=== PATIENT | male | born 1955 | race Caucasian/White ===

== ENCOUNTER 2018-02-09 11:40 | Inpatient (IN) | payer BC, OTHER ==
[~2018-02-09] VITALS: Ht 175.3 cm; Wt 74.8 kg
--- NOTE | 2018-02-09 17:00 | NUR ---
Pre-Assessment Patient is met in intake office, he is alert and oriented x4, he states he is here for a supervised withdrawal from Alcohol. Vital Signs: BP 120/80, HR 83, RR 16, O2 95 % He is clean shaven and well dressed and speaks in a clear voice. Interview will continue when Patient arrives on the floor. Explained policy of any controlled substance that may be brought in would be destroyed, patient agreed to all policies and procedures.
[2018-02-09] MEDS ORDERED: MELO-105 PO (17:32)
[2018-02-09] MEDS ORDERED: CARV6.25 PO (17:32)
[2018-02-09] MEDS ORDERED: MONT10TA25 PO (17:32)
[2018-02-09] MEDS ORDERED: ASPI81TA31 PO (17:32)
[2018-02-09] MEDS ORDERED: LISI1TAB11 PO (17:32)
[2018-02-09] MEDS ORDERED: TRAZ-182 PO (17:32)
[2018-02-09] MEDS ORDERED: ESCI10TA PO (17:32)
[2018-02-09] MEDS ORDERED: PANT40TA4 PO (17:32)
[2018-02-09] MEDS ORDERED: MIRALAX 17 GM POWD.PACK PO PRN (17:45)
[2018-02-09] MEDS ORDERED: LORAZEPAM 2 MG/1 ML VIAL IM PRN (17:45)
[2018-02-09] MEDS ORDERED: ACETAMINOPHEN 325 MG TABLET PO PRN (17:45)
[2018-02-09] MEDS ORDERED: CLONIDINE HCL 0.1 MG TABLET PO PRN (17:45)
[2018-02-09] MEDS ORDERED: MAG HYDROX/AL HYDROX/SIMETH 30 ML LIQUID UDC PO PRN (17:45)
[2018-02-09] MEDS ORDERED: MAGNESIUM HYDROXIDE 30 ML LIQUID UDC PO PRN (17:45)
[2018-02-09] MEDS ORDERED: LOPERAMIDE HCL 2 MG CAPSULE PO PRN ×2 (17:45)
[2018-02-09] MEDS ORDERED: IBUPROFEN 600 MG TABLET PO PRN (17:45)
[2018-02-09] MEDS ORDERED: THIAMINE HCL 200 MG/2 ML VIAL IM ONE (17:45)
[2018-02-09] MEDS ORDERED: ONDANSETRON ODT 4 MG TAB.RAPDIS SL PRN (17:45)
[2018-02-09] MEDS ORDERED: ONDANSETRON 4 MG/2 ML VIAL IM PRN (17:45)
[2018-02-09] MEDS ORDERED: LORAZEPAM 1 MG TABLET PO PRN ×2 (17:45→18:00)
--- NOTE | 2018-02-09 18:00 | NUR ---
Admission Note: Patient is a 62 yr old male who was admitted to [facility] 02/09/18 for a medically supervised withdrawal from ETOH ( Vodka/Beer ) He arrived in [place] this afternoon from [place]. Patient states that his last drink was last Monday02/03/18 .1 pint of Vodka. He states that he is a binge drinker and can go for days / weeks without drinking and then he will go on a binge, he states this has been going on since he relapsed 5 weeks ago after 1 year of sobriety. It has been 1 week since he had any alcohol so he is not experiencing any withdrawal symptoms but states when he does they include diaphoresis, anxiety and hand tremors. He has a past medical history of heart murmur in which on 06/11/13 he had open heart surgery and had an aortic valve replacement. He has a history of Hypertension in which he takes Lisinopril /HCTZ 20/12.5 daily and Coreg 6.25MG BID. He also takes Aspirin 81MG PO daily. He has GERD and takes Pantoprazole 40 MG PO daily He has depression and takes Lexapro 10 MG PO daily Seasonal Allergies he takes Singulair 10 MG PO HS Insomnia he takes Trazodone 50 MG PO and Restoril 15 MG PO HS Patient states that he first started drinking at age 14 but that it didn't become a problem until the last few years after going through a separation with his , he says that it was becoming a problem lately because he would call in sick from work and stay home and drink and he was getting worried he may lose his job as he had run out of sick time, " I have such a good job and I really don't want to lose it", 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 He states he went to Treatment in 2017 to [facility] in [facility] for 30 days and stayed sober for 1 year until this relapse 5 weeks ago. He states the reason for relapse was that he started off thinking he could control his drinking and just have 1 or 2 drinks but that it soon led to binge drinking many drinks, he states that this time will be different because he has a good sober support system and his girlfriend is 100% beside him and promises to stop drinking also to support him. Substance History: 12 beers OR 1 Pint Vodka Non Daily for 5 weeks last consumed 1 Pint Vodka 02/03/18 He states that over the last 10 yrs or so he has tried many times on his own to stop drinking and had been successful at times but with the stress of an unhappy marriage he would always go back to drinking. He also states that after getting a DUI 2 years ago he realized his problem was bigger than he thought. " I need to learn the proper tools to stay sober and maintain a life of sobriety as I'm not getting any younger ". He states no accidental overdose, no suicide intent , no psych history , no delirium or blackouts. He has a PCP in [place] named Dr Aaron Rod Lung sounds clear bilaterally , no cough or SOB, BS present in all quadrants, last BM 02/09/18. Encouraged patient to attend groups and meetings and learn new coping skills to maintain solid sobriety and to be open and honest for best possible results. Admitting COLUMBA 4 Weight is 165 lbs on standing scale, Ht is 5'9", he is full code, regular diet, No Known allergies, skin is intact. Addendum: 02/12/18 at 0801 by LOREN DESAI RN Substance Use History: Temazepam 15 MG PO every night for 2 Years.
--- NOTE | 2018-02-09 19:30 | NUR ---
Start of Shift Patient Received. patient is noted in the activities room participating in a group meeting. Patient is currently receiving PRN medications for any increased signs and symptoms of withdrawal. No PRN Medications administered. Admission CIWA noted to be 4. All needs attended to promptly. Will continue plan of care as ordered.
--- NOTE | 2018-02-09 19:45 | NUR ---
End Of Shift: Patient was admitted today 02/09/18 for a medically supervised withdrawal from Alcohol, he has settled into the unit and is in room 306. MD on the floor to see Patient, UDS obtained and awaiting Lab blood draw. Endorsed to PM nurse.
[2018-02-09 20:14] LABS: BASOPHILS # (AUTO) 0.1 K/uL (0.0-8.0); BASOPHILS % (AUTO) 1.9 % (0.0-2.0); EOSINOPHILS # (AUTO) 0.2 K/uL (0.0-0.7); EOSINOPHILS % (AUTO) 4.2 % (0.0-7.0); HEMATOCRIT 34.8 % (36.7-47.1); LYMPHOCYTES # (AUTO) 1.6 K/uL (20.0-40.0); LYMPHOCYTES % (AUTO) 31.5 % (20.5-51.5); MEAN CORPUSCULAR HEMOGLOBIN 31.8 uug (23.8-33.4); MEAN CORPUSCULAR HGB CONC 34 g/dL (32.5-36.3); MEAN CORPUSCULAR VOLUME 92.5 fL (73.0-96.2); MONOCYTES # (AUTO) 0.5 K/uL (2.0-10.0); MONOCYTES % (AUTO) 10.6 % (0.0-11.0); NEUTROPHILS # (AUTO) 2.6 K/uL (1.8-8.9); NEUTROPHILS % (AUTO) 51.8 % (38.5-71.5); PLATELET COUNT (AUTO) 296 K/uL (152-348); RED BLOOD CELL COUNT(AUTO) 3.76 MIL/uL (4.06-5.63); WHITE BLOOD COUNT (AUTO) 5.1 K/uL (3.6-10.2)
[2018-02-09 20:26] LABS: ETHANOL < 3 MG/DL (0-0)
[2018-02-09 20:27] LABS: ALANINE AMINOTRANSFERASE 38 U/L (16-63); ALKALINE PHOSPHATASE 89 U/L (50-136); AMYLASE 98 U/L (25-115); ASPARTATE AMINOTRANSFERASE 32 U/L (15-37); BILIRUBIN,TOTAL 0.2 mg/dL (0.2-1.0); CARBON DIOXIDE 33 mmol/L (21-32); CHLORIDE 99 mmol/L (98-107); CREATININE 0.9 mg/dL (0.6-1.3); GLUCOSE 130 mg/dL (74-106); LIPASE 367 U/L (73-393); MAGNESIUM 1.9 mg/dL (1.8-2.4); POTASSIUM 3.2 mmol/L (3.5-5.1); TOTAL PROTEIN, SERUM 6.5 g/dL (6.4-8.2); UREA NITROGEN, BLOOD 13 mg/dL (7-18)
[2018-02-09 20:48] VITALS: BP 115/87
[2018-02-09] MEDS: CARVEDILOL 6.25 MG TABLET PO SCH (20:50)
[2018-02-09] MEDS: diphenhydrAMINE 50 MG CAPSULE PO PRN (20:50)
[2018-02-09] MEDS: TRAZODONE 50 MG TABLET PO SCH (20:50)
[2018-02-09 20:56] LABS: *AMPHETAMINE, URINE NEGATIVE (NEGATIVE); *BARBITURATE, URINE NEGATIVE (NEGATIVE); *CANNABINOID, URINE NEGATIVE (NEGATIVE); *COCCAINE, URINE NEGATIVE (NEGATIVE); *OPIATE, URINE NEGATIVE (NEGATIVE); *PHENCYCLIDINE SCREEN,URINE NEGATIVE (NEGATIVE)
[2018-02-09] MEDS ORDERED: POTASSIUM CHLORIDE 20 MEQ TAB.PRT.SR PO ONE (21:00)
--- NOTE | 2018-02-09 21:00 | NUR ---
PRN Medication administration/MD Communication Patient is noted verbalizing inability of falling asleep. PRN Trazodone and Benadryl administered. Labs resulted with K noted to be 3.2. Relayed to MD with new order for KDUR 40meq x1. Order noted and carried out. Medication administered accordingly. All needs attended to promptly. Will continue to monitor.
--- NOTE | 2018-02-09 22:00 | NUR ---
PRN Medication Reassessment 2200 Patient is noted in bed with his eyes closed. Breathing even and non labored. No signs of restlessness or discomfort noted. PRN Benadryl and Trazodone noted to be effective. Will continue to monitor.
[2018-02-10 00:05] VITALS: BP 122/83
[2018-02-10 04:24] VITALS: BP 124/80
[2018-02-10] MEDS: PANTOPRAZOLE SODIUM 40 MG TABLET.DR PO SCH (06:35)
--- NOTE | 2018-02-10 07:09 | NUR ---
End of Shift Patient is in bed with eyes closed. Breathing even and non labored. Patient continues on PRN medications for increased signs and symptoms of withdrawal. He received PRN Benadryl and Trazodone with medication noted to be effective. Labs noted and supplemented with KDUR 40meq. Last noted CIWA 1. He was noted to sleep a total of 8 hours. All needs attended to promptly. Will endorse to continue plan of care as ordered.
--- NOTE | 2018-02-10 07:47 | NUR ---
Start of shift Pt is y/o male admitted for medically supervised withdrawal of ETOH. Per senior system operator nurse COLUMBA was 1 at 2400. Upon start of shift pt was in bed with eyes closed. Araousable to voice and light touch. Pt appears disheveled. Pts room has wrappers and empty bottles all over tables and dresser. Pts expression is anxious and he has poor eye contact. During assessment, pt is AOx3. Lung sounds clear bilaterally. Radial pulse is regular and non-bounding. Abdomen soft and non-tender. Pt denies c/o N/V/D. Skin is warm and dry. Pt denies pain at this time. Pt is currently on PRN medications to manage withdrawal symptoms. Bed in lowest position. Side rails up x2. Call light functioning and within reach. All needs attended and met. Will continue to monitor.
[2018-02-10 08:00] VITALS: BP 120/82
--- NOTE | 2018-02-10 08:08 | NUR ---
CIWA 1- Pt denies c/o withdrawal symptoms. Pt c/o mild anxiousness. VSS. Pt calm, cooperative and optimistic about maintaining sobriety.
[2018-02-10] MEDS ORDERED: TUBERCULIN,PURIF.PROT.DERIV. 5 TU/0.1 ML TEST ID ONE (09:00)
[2018-02-10] MEDS ORDERED: Medication Not On Formulary EA (Lisinopril/HCTZ (Lisinopril-Hctz 20-12.5 Mg Tab) 1 TAB) PO SCH (09:00)
[2018-02-10] MEDS: THIAMINE HCL 100 MG TABLET PO SCH (09:04)
[2018-02-10] MEDS: HYDROCHLOROTHIAZIDE 12.5 MG CAPSULE PO SCH (09:04)
[2018-02-10] MEDS: LISINOPRIL 20 MG TABLET PO SCH (09:04)
[2018-02-10] MEDS: ASPIRIN 81 MG TAB.CHEW PO SCH (09:05)
[2018-02-10] MEDS: MONTELUKAST SODIUM 10 MG TABLET PO SCH (09:05)
[2018-02-10] MEDS: MULTIVITAMINS,THERAPEUTIC TABLET PO SCH (09:05)
[2018-02-10] MEDS: CARVEDILOL 6.25 MG TABLET PO SCH ×2 (09:05→17:16)
[2018-02-10] MEDS: FOLIC ACID 1 MG TABLET PO SCH (09:06)
[2018-02-10 12:00] VITALS: BP 116/72
--- NOTE | 2018-02-10 12:08 | NUR ---
CIWA 1- VSS, PT C/O MILD ANXIETY. PT DENIES C/O WITHDRAW SYMPTOMS AT THIS TIME. PT PARTICIPATED IN GROUP THERAPY AND ID + COPING SKILLS TO MAINTAIN SOBRIETY.
[2018-02-10 16:00] VITALS: BP 106/76
--- NOTE | 2018-02-10 16:16 | NUR ---
CIWA 1- VSS, PT C/O MILD ANXIETY. PT DENIES C/O WITHDRAW SYMPTOMS AT THIS TIME. PT PARTICIPATED IN BOTH GROUP THERAPY SESSIONS TODAY AND VERBALIZES HE HAS ID + COPING SKILLS TO MAINTAIN SOBRIETY.
--- NOTE | 2018-02-10 18:28 | NUR ---
306 End of shift Pt is 62 y/o male admitted for medically supervised withdrawal of ETOH. Last CIWA 1 at 1600. Pt A&O x4. Pts C/O anxiety, but managed with + coping skills. Pt is currently on PRN medications to manage withdrawal symptoms; no PRNs given today. No notable withdrawal symptoms. Pt appetite is good. Pt encouraged to participate in group activities, socialize with others and identify positive coping skills to maintain sobriety. Pt did attend both group sessions today. PO fluids 2377 ml, voids x3, BM x2. FULL CODE AND NKA. Bed in lowest position. Side rails up x2. Call light functioning and within reach. All needs attended and met. Will continue to monitor. Endorsed to PM shift.
--- NOTE | 2018-02-10 19:30 | NUR ---
Start of Shift Endorsement received from day nurse. Pt admitted 02/09/18 for medically managed withdrawal/detox from ETOH. Pt is listed as a full code with NKA's, on a cardiac diet. Pt to be d/c'd Monday am. Pt found in room, appears depressed with poor eye contact, loud voice, slumped poisture. Pt with racing/loose thoughts. Oriented x 4. Denies all w/d s/sx's except for some anxiety. Full safety measures in place with bed locked and in lowest position, call muhammad within reach and frequent rounding.
[2018-02-10 20:00] VITALS: BP 112/62
--- NOTE | 2018-02-10 20:00 | NUR ---
Evening Rounds CIWA score 1, aeb anxiety, depression, anhedonia, difficulty sleeping, fatigue, frequent nocturnal awakenings
[2018-02-10] MEDS: diphenhydrAMINE 50 MG CAPSULE PO PRN (21:08)
[2018-02-10] MEDS: TRAZODONE 50 MG TABLET PO SCH (21:08)
--- NOTE | 2018-02-10 21:08 | NUR ---
PRN Med Benedryl 50mg PO given for insomnia. Will continue to monitor, reassessing in 1 hour.
--- NOTE | 2018-02-10 22:08 | NUR ---
PRN Reassessment Benedryl 50mg PO given 1 hour prior. At present pt is resting with eyes closed, RR 16, even and nonlabored. Med effective.
[2018-02-11] VITALS: BP 115/80
--- NOTE | 2018-02-11 | NUR ---
Midnight Rounds VS's obtained and stable, CIWA deferred r/t pt somnalance. Will continue to monitor and promptly attend to all s/sx's w/d or distress.
--- NOTE | 2018-02-11 04:00 | NUR ---
0400 Rounds VS's refused, RR 16, even and nonlabored, CIWA deferred r/t pt somnalance. Will continue to monitor and promptly attend to all s/sx's w/d or distress.
[2018-02-11] MEDS: PANTOPRAZOLE SODIUM 40 MG TABLET.DR PO SCH (06:53)
--- NOTE | 2018-02-11 07:11 | NUR ---
End of Shift Endorsement given to day nurse. Pt admitted 02/09/18 for medically managed withdrawal/detox from ETOH. Pt is listed as a full code with NKA's, on a cardiac diet. Pt to be d/c'd Monday. Pt presented in evening as depressed, flat affect with racing/loose thoughts, slumped/hypoactive mannerisms. Last CIWA was 1 at 2000 hours. Pt received Benedryl as sole PRN, with 6 hours of sleep, 500 mls intake and 3 voids, and 1 BM. Full safety measures remain in place with bed locked and in lowest position, siderails up x 2 and frequent rounding.
--- NOTE | 2018-02-11 07:38 | NUR ---
Start of shift Pt is 62 y/o male admitted for medically supervised withdrawal of ETOH. Last CIWA 1 at 1999. Pt A&O x4. Pts C/O anxiety, but managed with + coping skills. Pt presents with flat affect and depressed mood. Pt unshaved. Room clean. Pt slept 6 hours last night. Pt is currently on PRN medications to manage withdrawal symptoms. Plans for Pt to be discharged tomorrow to [facility]. Pt encouraged to participate in group activities, socialize with others and identify positive coping skills to maintain sobriety. Pt reports FULL CODE AND NKA. Bed in lowest position. Side rails up x2. Call light functioning and within reach. All needs attended and met. Will continue to monitor.
[2018-02-11 08:01] VITALS: BP 133/89
--- NOTE | 2018-02-11 08:10 | NUR ---
CIWA 1- VSS, PT C/O MILD ANXIETY. HE IS NERVOUS ABOUT DISCHARGE TOMORROW. PT DENIES C/O WITHDRAW SYMPTOMS AT THIS TIME.
[2018-02-11] MEDS: ASPIRIN 81 MG TAB.CHEW PO SCH (08:15)
[2018-02-11] MEDS: MULTIVITAMINS,THERAPEUTIC TABLET PO SCH (08:15)
[2018-02-11] MEDS: HYDROCHLOROTHIAZIDE 12.5 MG CAPSULE PO SCH (08:16)
[2018-02-11] MEDS: THIAMINE HCL 100 MG TABLET PO SCH (08:16)
[2018-02-11] MEDS: MONTELUKAST SODIUM 10 MG TABLET PO SCH (08:16)
[2018-02-11] MEDS: FOLIC ACID 1 MG TABLET PO SCH (08:16)
[2018-02-11] MEDS: LISINOPRIL 20 MG TABLET PO SCH (08:16)
[2018-02-11] MEDS: CARVEDILOL 6.25 MG TABLET PO SCH ×2 (08:17→16:45)
[2018-02-11 10:07] LABS: HEPATITIS B SURFACE AG Negative (Negative)
[2018-02-11 12:00] VITALS: BP 133/91
--- NOTE | 2018-02-11 12:05 | NUR ---
CIWA 1- VSS, PT C/O MILD ANXIETY. PT A&OX4. PT DENIES C/O WITHDRAW SYMPTOMS AT THIS TIME.
[2018-02-11 15:45] LABS: BASOPHILS # (AUTO) 0.1 K/uL (0.0-8.0); BASOPHILS % (AUTO) 1.3 % (0.0-2.0); EOSINOPHILS # (AUTO) 0.1 K/uL (0.0-0.7); EOSINOPHILS % (AUTO) 2.4 % (0.0-7.0); HEMATOCRIT 36.1 % (36.7-47.1); HEMOGLOBIN 12.4 g/dL (12.5-16.3); LYMPHOCYTES # (AUTO) 1.3 K/uL (20.0-40.0); LYMPHOCYTES % (AUTO) 22.7 % (20.5-51.5); MEAN CORPUSCULAR HEMOGLOBIN 31.5 uug (23.8-33.4); MEAN CORPUSCULAR HGB CONC 34 g/dL (32.5-36.3); MEAN CORPUSCULAR VOLUME 92.1 fL (73.0-96.2); MONOCYTES # (AUTO) 0.6 K/uL (2.0-10.0); MONOCYTES % (AUTO) 9.8 % (0.0-11.0); NEUTROPHILS # (AUTO) 3.7 K/uL (1.8-8.9); NEUTROPHILS % (AUTO) 63.8 % (38.5-71.5); PLATELET COUNT (AUTO) 264 K/uL (152-348); RED BLOOD CELL COUNT(AUTO) 3.92 MIL/uL (4.06-5.63); WHITE BLOOD COUNT (AUTO) 5.8 K/uL (3.6-10.2)
[2018-02-11 15:55] LABS: BILIRUBIN,TOTAL 0.2 mg/dL (0.2-1.0); POTASSIUM 3.6 mmol/L (3.5-5.1); TOTAL PROTEIN, SERUM 6.5 g/dL (6.4-8.2)
[2018-02-11 16:00] VITALS: BP 118/83
--- NOTE | 2018-02-11 16:04 | NUR ---
CIWA 1- VSS, PT A&O X4. PT C/O MILD ANXIETY AND DENIES C/O ETOH WITHDRAW SYMPTOMS AT THIS TIME.
--- NOTE | 2018-02-11 18:33 | NUR ---
End of shift Pt is 62 y/o male admitted for medically supervised withdrawal of ETOH. Last CIWA 1 at 1600. Pt A&O x4. Denies all w/d symptoms except for some mild anxiety. Pt reports anxiety r/t discharge and how he will manage sobriety [facility]. Discharge has been postponed. Pt presents with flat affect and depressed mood. Pt unshaved. Room clean. Pt is currently on PRN medications to manage withdrawal symptoms. Pt encouraged to participate in group activities, socialize with others and identify positive coping skills to maintain sobriety. Pt attended both group sessions today. PO fluids 1750ml, voids x4, BM x1. Bed in lowest position. Side rails up x2. Call light functioning and within reach. All needs attended and met. Will continue to monitor. Endorsed to PM shift.
--- NOTE | 2018-02-11 19:30 | NUR ---
Start of Shift Endorsement received from day nurse. Pt admitted 02/09/18 for medically managed withdrawal/detox from ETOH. Pt is listed as a full code with NKAs and on a regular diet. Placement for pt in rehab on . Pt currently with CIWA of 1 at 1600 hours, anxiety noted. Pt depressed, remorseful, with flat affect, worried and sad looking. Pt able to assume responsibility for behavior and actions. Pt talking mainly about his dogs, referred to as his 2 girls. Pt able to cooperate and participate with treatment plan. No c/os at present. Full safety measures remain in place. Will continue to monitor for shift, promptly attending to all s/sxs distress or w/d
[2018-02-11 20:00] VITALS: BP 110/73
--- NOTE | 2018-02-11 20:00 | NUR ---
Evening Rounds VS's obtained and stable. CIWA 1, aeb anxiety, anhedonia, depression, difficulty sleeping and concentrating, fatigue/malaise.
[2018-02-11] MEDS: TRAZODONE 50 MG TABLET PO SCH (21:37)
[2018-02-11] MEDS: diphenhydrAMINE 50 MG CAPSULE PO PRN (21:37)
--- NOTE | 2018-02-11 21:37 | NUR ---
PRN Med Benedryl 50mg PO given for insomnia. Will continue to monitor, reassessing in 1 hour
--- NOTE | 2018-02-11 22:37 | NUR ---
PRN Reassessment Benedryl 50mg PO given for insomnia 1 hour prior. At present pt is resting with eyes closed, RR 16, even and nonlabored. Med effective.
[2018-02-12] VITALS: BP 120/81
--- NOTE | 2018-02-12 | NUR ---
Midnight Rounds VS's obtained and stable, CIWA deferred r/t pt somnalence. Will continue to monitor and promptly attend to all s/sx's w/d or distress.
--- NOTE | 2018-02-12 04:00 | NUR ---
0400 Rounds VS's refused, RR 16 even and nonlabored, CIWA deferred r/t pt somnalence. Will continue to monitor and promptly attend to all s/sx's w/d or distress.
[2018-02-12] MEDS: PANTOPRAZOLE SODIUM 40 MG TABLET.DR PO SCH (07:06)
--- NOTE | 2018-02-12 07:16 | NUR ---
End of Shift Endorsement given to day nurse. Pt admitted 02/09/18 for medically managed withdrawal/detox from ETOH. Pt is listed as a full code with NKAs and on a regular diet. Placement for pt in rehab on . Pt currently with CIWA of 1 at 2000 hours, anxiety noted. Pt appearing depressed with flat affect, avoidant eye contact, worried/sad/remorseful during shift. Shift uneventful with Benedrl for insomnia being only PRN given. Pt slept for 6 hours with 1050 mls intake and 2 voids. Full safety measure remain in place, with bed locked and in lowest position, siderails up x 2, call muhammad within reach and frequent rounding.
--- NOTE | 2018-02-12 07:45 | NUR ---
START OF SHIFT Pt is a 62 y/o M admitted on 02/09/18 for medically supervised and monitoring of ETOH withdrawal. Pt has poor eye contact and has a flat affect. Educated pt with plan of care and s/s to report. Encouraged pt to participate in groups and activities to promote positive coping skills and to maintaining sobriety. Encouraged pt to verbalized feelings regarding situation. Last CIWA 1 and pt slept 6 hrs. Trazodone and benadryl prns given. Side rails upx2 and padded, bed in low position. Call light within reach and safety measures in place. Will continue to monitor.
--- NOTE | 2018-02-12 07:58 | NUR ---
Substance Use History: Restoril ( Temazepam) 15 MG PO every night for 2 years
[2018-02-12 08:00] VITALS: BP 136/85
--- NOTE | 2018-02-12 08:00 | NUR ---
CIWA 5 Pt is A/Ox4, respirations even and unlabored. Pt is sitting in chair with breakfast tray, has poor eye contact, speaks with a strong and clear voice. Pt is unshaven, has a flat affect affect but friendly and cooperative, has frequent shifting movements of the legs. Pt appears anxious, presents anhedonia, dysphoria, agitation, restlessness, fatigue, and tremors are seen on hands when drinking fluids. Scheduled meds given. Encouraged pt to cont to attend groups and participate in activities. Will continue to monitor.
[2018-02-12] MEDS: MULTIVITAMINS,THERAPEUTIC TABLET PO SCH (08:42)
[2018-02-12] MEDS: ASPIRIN 81 MG TAB.CHEW PO SCH (08:42)
[2018-02-12] MEDS: THIAMINE HCL 100 MG TABLET PO SCH (08:42)
[2018-02-12] MEDS: CARVEDILOL 6.25 MG TABLET PO SCH ×2 (08:43→18:04)
[2018-02-12] MEDS: LISINOPRIL 20 MG TABLET PO SCH (08:43)
[2018-02-12] MEDS: FOLIC ACID 1 MG TABLET PO SCH (08:43)
[2018-02-12] MEDS: HYDROCHLOROTHIAZIDE 12.5 MG CAPSULE PO SCH (08:43)
[2018-02-12] MEDS: MONTELUKAST SODIUM 10 MG TABLET PO SCH (08:43)
[2018-02-12 12:14] VITALS: BP 128/84
--- NOTE | 2018-02-12 12:20 | NUR ---
CIWA 4 Pt is guarded, appears mildly anxious, presents avoidant eye contact, anhedonia, dysphoria, agitation, restlessness, fatigue, and tremors are felt. Pt is currently sitting in chair eating lunch. Refuses prn meds. Encouraged pt to increase fluids as tolerated. Will continue to monitor.
[2018-02-12 16:00] VITALS: BP 120/87
--- NOTE | 2018-02-12 16:00 | NUR ---
CIWA 5 Pt remains guarded, refused to go to afternoon group. States he will be going to many groups at treatment. Pt continues to present anxiety, agitation, anhedonia, dysphoria, agitation, sweating, restlessness, freguent movements, fatigue, tremors are felt and has an avoidant eye contact. No prns given. Educated pt on benefits of groups and participation. Encouraged pt to verbalize feeling on situation. Will continue to monitor.
--- NOTE | 2018-02-12 17:15 | NUR ---
WOUND CARE Dressing changed; irrigated with NS, packed w/idoform strip, covered w/ dry drsg after pt showered. Addendum: 02/12/18 at 1815 by ROLAND PENNINGTON RN Wrong patient.
--- NOTE | 2018-02-12 19:19 | NUR ---
END OF SHIFT Discharge postponed for an extra day; subutex ordered for x1 for 1430, 2100, and tomrw 0900. Continues to have 1:1 sitter for safety. Last CIWA ; pt c/o increased anxiety, restlessness, and joint/bone aches noted. Toradol x2, clonidine x2, robaxin prns were given. Wound care done, dressing dry and intact; minimal drainage noted. Pt ate 25/75/50% of meals. Pt has taken a shower during shift. Pt has been reluctant to go to groups stating he will go during after care; educated pt on benefits of attending groups. Safety measures in place. Addendum: 02/12/18 at 1922 by ROLAND PENNINGTON RN Incorrect pt.
--- NOTE | 2018-02-12 19:22 | NUR ---
END OF SHIFT Pt remains guarded, has not been attending groups and has been isolative in room during shift. Last CIWA 5. No prns given during shift. Endorsement given to photocomposition keyboard operator nurse.
--- NOTE | 2018-02-12 19:30 | NUR ---
Start of Shift Endorsement received from day nurse. Pt admitted 02/09/18 for medically managed withdrawal from ETOH. Pt is listed as a full code with NKAs and on a cardiac diet. Last CIWA reported was a 5 from 1600 hours. Pt presents with flat affect, appears anxious, restless, depressed, with poor eye contact and loud voice with loose/racing thoughts. Oriented x 4. Pt ambulatory with steady gait, becoming increasingly restless with wait for rehab placement on . Stress management and coping skills reviewed with pt. Full safety measures remain in place with bed locked and in lowest position, siderails up x 2, call muhammad within reach and frequent rounding. Will continue to monitor for duration of shift promptly attending to all s/sxs w/d or distress
[2018-02-12 20:00] VITALS: BP 129/85
--- NOTE | 2018-02-12 20:00 | NUR ---
Evening Rounds CIWA 3, aeb fine tremors, anxiety and agitation, depression, anhedonia, difficulty concentrating and sleeping, fatigue, frequent nocturnal awakenings.
[2018-02-12] MEDS: TRAZODONE 50 MG TABLET PO SCH (21:36)
[2018-02-12] MEDS: diphenhydrAMINE 50 MG CAPSULE PO PRN (21:36)
--- NOTE | 2018-02-12 21:36 | NUR ---
PRN Med Benedryl 50mg PO given for insomia. Will continue to monitor and reassess in 1 hour
--- NOTE | 2018-02-12 22:36 | NUR ---
PRN Reassessment Benedryl 50mg PO given 1 hour prior. At present, pt is resting with eyes closed, RR 14, even and nonlabored. Med effective.
[2018-02-13] VITALS: BP 136/88
--- NOTE | 2018-02-13 | NUR ---
Midnight Rounds VS's obtained, stable with HR 57, pt asymptomatic. CIWA deferred r/t pt somnalance. Will continue to moniotor and promptly attend to all s/sx's w/d or distress.
--- NOTE | 2018-02-13 04:00 | NUR ---
0400 Rounds VS's refused, RR 14, even and non labored. CIWA deferred r/t pt somnalance. Will continue to monitor and promptly attend to all s/sx's w/d or distress
[2018-02-13] MEDS: PANTOPRAZOLE SODIUM 40 MG TABLET.DR PO SCH (07:08)
--- NOTE | 2018-02-13 07:19 | NUR ---
Start of Shift Endorsement given day nurse. Pt admitted 02/09/18 for medically managed withdrawal from ETOH. Pt is listed as a full code with NKAs and on a cardiac diet. Last CIWA of 3 at 2000 hours, manifested mainly by anxiety, agitation, fine tremors, depression, insomnia, and anhedonia. Pt remained depressed in evening with flat affect, guarded with loud voice and loose thoughts. Pt maintains with flat affect and guarded. Pt received Benedryl 50mg PO as only PRN for shift, sleeping 5 hours, with 800 mls intake and 2 voids. Full safety measures remain in place with frequent rounding.
--- NOTE | 2018-02-13 07:42 | NUR ---
START OF SHIFT Pt is a 62 y/o M admitted on 02/09/18 for medically supervised and monitoring of ETOH withdrawal. Pt speaks w/ a strong and clear voice, has poor eye contact and has a flat affect, appears to be guarded, withdrawn and isolative. Pt c/o difficulty sleeping. Last CIWA 3 and pt slept 6 hrs. Educated pt with plan of care and s/s to report. Encouraged pt to verbalized feelings regarding situation and to attend groups today. Trazodone and benadryl prns given last night. Side rails upx2 and padded, bed in low position. Call light within reach and safety measures in place. Will continue to monitor.
--- NOTE | 2018-02-13 08:00 | NUR ---
CIWA 4 Pt is A/Ox4, respirations even and unlabored. Pt speaks w/ a strong and loud voice, has poor eye contact and a flat affect, pt is guarded, withdrawn and isolative. Pt has restlessness and is anxious to leave detox. Pt reports having difficulty falling asleep however trazodone and the benadryl prn was effective. Scheduled meds were given. Encouraged and educated pt to attend groups however pt states he will attend groups at the treatment center. Will continue to monitor.
[2018-02-13 08:02] VITALS: BP 127/86
[2018-02-13] MEDS: MULTIVITAMINS,THERAPEUTIC TABLET PO SCH (09:01)
[2018-02-13] MEDS: THIAMINE HCL 100 MG TABLET PO SCH (09:02)
[2018-02-13] MEDS: ASPIRIN 81 MG TAB.CHEW PO SCH (09:02)
[2018-02-13] MEDS: HYDROCHLOROTHIAZIDE 12.5 MG CAPSULE PO SCH (09:02)
[2018-02-13] MEDS: FOLIC ACID 1 MG TABLET PO SCH (09:02)
[2018-02-13] MEDS: MONTELUKAST SODIUM 10 MG TABLET PO SCH (09:02)
[2018-02-13] MEDS: CARVEDILOL 6.25 MG TABLET PO SCH ×2 (09:02→17:35)
[2018-02-13] MEDS: LISINOPRIL 20 MG TABLET PO SCH (09:02)
[2018-02-13 12:22] VITALS: BP 137/90
--- NOTE | 2018-02-13 12:34 | NUR ---
CIWA 4 Pt is isolative in room, presents anxiety and restlessness. Pt verbalized he is anxious to get through detox and treatment and get back to his dogs who are like his children to him. Encouraged pt to attend groups to facilitate in building coping skills. Will continue to monitor.
[2018-02-13 16:30] VITALS: BP 131/83
--- NOTE | 2018-02-13 16:35 | NUR ---
Praised client for attending groups today and encouraged him to continue getting as much as he can out of the program.
--- NOTE | 2018-02-13 18:45 | NUR ---
END OF SHIFT Pt has attended groups and participated; pt reports groups were interesting and he enjoyed it. CIWA score of 4 throughout shift. No prns given. Safety measures in place. Endorsement given to retail shift manager nurse.
--- NOTE | 2018-02-13 18:50 | NUR ---
START OF SHIFT NOTE: This is report an 62 year old male admitted on 02/09/2018. He was admitted for Alcohol ("1pint Vodka or 12 Beers") withdrawal. Patient is on PRN Medications only. Upon endorsement, the patient CIWA=4 at 1600: Throughout the day the patient presented with mild anxiety, agitation, nervousness, tremors, that can be felt, not observe. VSWNL. Encouraged fluids intake, as tolerated. Encouraged to attend group activities. Endorsed by day shift nurse. All needs met. Safety measures: Call light within reach, bed is locked in lowest position, padded bed rails up x2. Will continues to monitor closely.
[2018-02-13 20:00] VITALS: BP 140/96
--- NOTE | 2018-02-13 20:00 | NUR ---
CIWA ASSESSMENT CIWA=4: Patient presented with anxiety ,agitation, nervousness, and tremors that can be felt. Calm and safe environment provided. All needs met. Safety measures: Call light within reach, bed is locked in lowest position, padded bed rails up x2. Will continues to monitor closely.
[2018-02-13] MEDS: TRAZODONE 50 MG TABLET PO SCH (21:15)
[2018-02-13] MEDS: diphenhydrAMINE 50 MG CAPSULE PO PRN (21:18)
--- NOTE | 2018-02-13 21:18 | NUR ---
PRN BENADRYL 50 MG PO ADMINISTRATION. PRN Benadryl 50 mg PO administrated for insomnia at 2110. Patient tolerated well. Calm and safe environment provided. All needs met. Safety measures: Call light within reach, bed is locked in lowest position, padded bed rails up x2. Will continues to monitor closely.
--- NOTE | 2018-02-13 22:18 | NUR ---
PRN BENADRYL 50 MG PO RE-ASSESSMENT Patient is sleeping. RR:17. Respirations are even and unlabored. PRN Benadryl 50 mg PO administrated for insomnia at 2118 was effective. All needs met. Safety measures: Call light within reach, bed is locked in lowest position, padded bed rails up x2. Will continues to monitor closely.
[2018-02-14] VITALS: BP 137/91
--- NOTE | 2018-02-14 | NUR ---
CIWA ASSESSMENT CIWA=5: Patient presented with anxiety, agitation, nervousness, and tremors that can be felt. Calm and safe environment provided. All needs met. Safety measures: Call light within reach, bed is locked in lowest position, padded bed rails up x2. Will continues to monitor closely.
[2018-02-14 04:00] VITALS: BP 135/86
--- NOTE | 2018-02-14 04:00 | NUR ---
CIWA ASSESSMENT CIWA=6: Patient presented with anxiety , agitation, nervousness, sweating, and tremors that can be felt. Calm and safe environment provided. All needs met. Safety measures: Call light within reach, bed is locked in lowest position, padded bed rails up x2. Will continues to monitor closely.
[2018-02-14] MEDS: PANTOPRAZOLE SODIUM 40 MG TABLET.DR PO SCH (06:21)
--- NOTE | 2018-02-14 07:07 | NUR ---
END OF SHIFT NOTE: Endorsed patient is a 62 year old male presented for Alcohol withdrawal. Patient is on PRN Medications only. Patient is alert and oriented x4, with stable gait, soft and clear speech. Patient ambulatory, low VTE risk. Patient noted unkempt, unshaven, with uncombed hair. Initial CIWA=4 at 2000, CIWA= 5 at 0000. The most recent CIWA=6 at 0400: patient noted with mild anxiety, agitation, nervousness, sweating, and tremors, that can be felt, not observe. PRN Benadryl 50 mg PO administrated for insomnia at 2117 was effective. Patient slept for 5 hours, intake 1,000 ml, output: voided x3, stool x1. Encouraged fluids intake, as tolerated. Encouraged to attend group activities. Endorsed to day shift nurse. All needs met. Safety measures: Call light within reach, bed is locked in lowest position, padded bed rails up x2. Will continues to monitor closely.
[2018-02-14 08:00] VITALS: BP 146/96
--- NOTE | 2018-02-14 08:00 | NUR ---
START OF SHIFT Pt is A/Ox4, sitting up w/ HOB elevated. Pt is unshaven, has a loud and clear voice, appears to be guarded, has poor eye contact and has a flat affect, appears to be guarded, anxious, withdrawn and isolative. Pt c/o sweating during sleep and difficulty sleeping. Last CIWA 5 and pt slept 7 hrs. Educated pt with plan of care and s/s to report. Encouraged pt to verbalized feelings regarding situation and pt agreed to attend groups today stating he enjoyed groups he attended yesterday. Scheduled meds to be given. Refuses prns at this time. Side rails upx2 and padded, bed in low position. Call light within reach and safety measures in place. Will continue to monitor. Addendum: 02/14/18 at 1036 by ROLAND PENNINGTON RN COWS ASSESSMENT 6
--- NOTE | 2018-02-14 08:00 | NUR ---
START OF SHIFT Pt is a 62 y/o M admitted on 02/09/18 for medically supervised and monitoring of ETOH withdrawal. Pt is placed on prn meds. Pt is A/Ox4, sitting up w/ HOB elevated. Pt is unshaven, has a loud and clear voice, appears to be guarded, has poor eye contact and has a flat affect, appears to be guarded, anxious, withdrawn and isolative. Pt c/o sweating during sleep. Pt c/o difficulty sleeping. Last CIWA 5 and pt slept 7 hrs. Educated pt with plan of care and s/s to report. Encouraged pt to verbalized feelings regarding situation and pt agreed to attend groups today stating he enjoyed groups he attended yesterday. Benadryl prn given last night. Side rails upx2 and padded, bed in low position. Call light within reach and safety measures in place. Will continue to monitor.
[2018-02-14] MEDS: ASPIRIN 81 MG TAB.CHEW PO SCH (09:01)
[2018-02-14] MEDS: LISINOPRIL 20 MG TABLET PO SCH (09:01)
[2018-02-14] MEDS: MULTIVITAMINS,THERAPEUTIC TABLET PO SCH (09:01)
[2018-02-14] MEDS: HYDROCHLOROTHIAZIDE 12.5 MG CAPSULE PO SCH (09:01)
[2018-02-14] MEDS: MONTELUKAST SODIUM 10 MG TABLET PO SCH (09:02)
[2018-02-14] MEDS: THIAMINE HCL 100 MG TABLET PO SCH (09:02)
[2018-02-14] MEDS: FOLIC ACID 1 MG TABLET PO SCH (09:02)
[2018-02-14] MEDS: CARVEDILOL 6.25 MG TABLET PO SCH ×2 (09:02→17:28)
[2018-02-14 12:30] VITALS: BP 142/91
--- NOTE | 2018-02-14 12:35 | NUR ---
CIWA 5 Pt appears to be guarded, anxious, withdrawn and isolative. Pt presents increased emotional amplitude, anxiety, restlessness, and agitation. Refuses prns at this time. Will continue to monitor.
[2018-02-14 16:00] VITALS: BP 112/73
--- NOTE | 2018-02-14 16:00 | NUR ---
CIWA 5 Pt presents increased emotional amplitude, anxiety, restlessness, and agitation. Pt was tearful and states he is feeling remorseful of his drinking and wants to figure out why he started drinking about when he thought his life was going well. Refuses prns at this time. Will continue to monitor.
--- NOTE | 2018-02-14 18:42 | NUR ---
END OF SHIFT Pt exhibited increased emotional amplitude; was very tearful while talking about his feelings about substance use and sobriety. Pt stated he wants to figure out why he started to drink again when he felt as though nothing was wrong with his life. Pt states he thinks of his 2 dogs like they are his children and is very tearful when speaking of them. Pt has been isolative in room today. No prns given. Last CIWA 5. Safety measures in place. Endorsement will be given.
--- NOTE | 2018-02-14 18:50 | NUR ---
START OF SHIFT NOTE: Presented patient is an 62 year old male admitted for Alcohol withdrawal, placed on PRN medications, and remains compliant with treatment, medications, and diet regime. Patient is alert and oriented x4, with stable gait, and soft clear speech. He is scheduled for discharging tomorrow. The most recent CIWA=5 at 1600: Throughout the day shift patient noted with anxiety, agitation, nervousness, tremors, that can be felt not observe, and barely sweating. No PRN medications administrated during day shift, per day shift nurse report. Encouraged fluids intake as tolerated. Encouraged to attend group activities. Safe and calm environment provided. All needs met. Safety measures: Call light within reach, bed locked in lowest position, and padded bed rails up bilaterally. The patient endorsed by outgoing day shift nurse. Will continue to monitor closely.
[2018-02-14 20:00] VITALS: BP 119/83
--- NOTE | 2018-02-14 20:00 | NUR ---
CIWA ASSESSMENT CIWA=6 at 2000: Patient experienced anxiety ,agitation, nervousness, barely sweating, and tremors that can be felt. Calm and safe environment provided. All needs met. Safety measures: Call light within reach, bed is locked in lowest position, padded bed rails up x2. Will continues to monitor closely.
[2018-02-14] MEDS: TRAZODONE 50 MG TABLET PO SCH (20:30)
[2018-02-14] MEDS: diphenhydrAMINE 50 MG CAPSULE PO PRN (20:30)
--- NOTE | 2018-02-14 20:30 | NUR ---
PRN BENADRYL 50 MG PO ADMINISTRATION. PRN Benadryl 50 mg PO administrated for insomnia at 2030. Patient tolerated well. Calm and safe environment provided. All needs met. Safety measures: Call light within reach, bed is locked in lowest position, padded bed rails up x2. Will continues to monitor closely.
--- NOTE | 2018-02-14 21:30 | NUR ---
PRN BENADRYL PO RE-ASSESSMENT Patient is sleeping. RR: 16. Respirations are even and unlabored. PRN Benadryl 50 mg PO administrated for insomnia at 2030 was effective. All needs met. Safety measures: Call light within reach, bed is locked in lowest position, padded bed rails up x2. Will continues to monitor closely.
[2018-02-15] VITALS: BP 140/94
--- NOTE | 2018-02-15 | NUR ---
CIWA ASSESSMENT CIWA=8 at 0000: Patient presented with irritable mood and anxious affect. Patient presented with anxiety, agitation, nervousness, tremors, sweating, an restlessness. Calm and safe environment provided. All needs met. Safety measures: Call light within reach, bed is locked in lowest position, padded bed rails up x2. Will continues to monitor closely.
[2018-02-15 04:00] VITALS: BP 147/85
--- NOTE | 2018-02-15 04:00 | NUR ---
CIWA ASSESSMENT CIWA=6 at 0400: Patient appears worried and depressed. Mood congruent, affect anxious. The patient verbalized, "I missed my two dogs, they are my family. I don't have kids, and my dogs like my kids". Encouraged expression his feeling, and reassuring provided. Calm and safe environment provided. All needs met. Safety measures: Call light within reach, bed is locked in lowest position, padded bed rails up x2. Will continues to monitor closely.
[2018-02-15] MEDS: PANTOPRAZOLE SODIUM 40 MG TABLET.DR PO SCH (06:28)
--- NOTE | 2018-02-15 06:50 | NUR ---
END OF SHIFT NOTE: This report on patient, an 62 year old male, presented for Alcohol withdrawal, continues ordered PRN medications, with tolerated well. Patient appears worried and depressed. Mood congruent , affect anxious. The patient verbalized, "I missed my two dogs, they are my familyI don't have kids, and my dogs like my kids". Encouraged to expressing his feeling, and reassuring provided. Withdrawal symptoms was closely monitored. CIWA=6 at 2000, CIWA= 8 at 0000. Last CIWA=6 at 0400: During my shift patient presented with anxiety, agitation, nervousness, sweating, fine tremors, insomnia, and restlessness. PRN Benadryl 50 mg PO administrated for insomnia at 2030 was effective. The patient remains compliant with treatment, medications, and diet regime. Patient slept for 4 hours, intake 1,500 ml, output: voided x3, stool x1. Encouraged fluids intake, as tolerated. Encouraged to attend group activities. Endorsed to day shift nurse. All needs met. Safety measures: Call light within reach, bed is locked in lowest position, padded bed rails up x2. Will continues to monitor closely.
[2018-02-15 07:30] VITALS: BP 152/101
--- NOTE | 2018-02-15 07:30 | NUR ---
START OF SHIFT Pt 62 y/o male admitted for etoh withdrawal. Pt received in room. Alert and oriented to name, place, and time. Perrla. Skin warm and moist to touch. Respirations even and unlabored. Anxious this morning. Pressured speech. Hyperverbal. Appears disheveled. Clothes scattered throughout the room. Pt is scheduled to be discharged today to [facility]. It was reported that pt slept for 4 hours last night. Last reported ciwa=5 @ 0400. Pt was on prn ativan. Bed on lowest position with side rails x2 up for safety. Call light within reach.
[2018-02-15 08:00] VITALS: BP 138/98
--- NOTE | 2018-02-15 08:00 | NUR ---
CIWA ASSESSMENT ciwa=5. Anxious and restless. Hyperverbal. Pressured speech. Hyperverbal.
[2018-02-15] MEDS: THIAMINE HCL 100 MG TABLET PO SCH (08:25)
[2018-02-15] MEDS: CARVEDILOL 6.25 MG TABLET PO SCH (08:25)
[2018-02-15] MEDS: FOLIC ACID 1 MG TABLET PO SCH (08:25)
[2018-02-15] MEDS: MONTELUKAST SODIUM 10 MG TABLET PO SCH (08:25)
[2018-02-15 08:26] VITALS: BP 152/101
[2018-02-15] MEDS: LISINOPRIL 20 MG TABLET PO SCH (08:26)
[2018-02-15] MEDS: MULTIVITAMINS,THERAPEUTIC TABLET PO SCH (08:26)
[2018-02-15] MEDS: HYDROCHLOROTHIAZIDE 12.5 MG CAPSULE PO SCH (08:26)
[2018-02-15] MEDS: ASPIRIN 81 MG TAB.CHEW PO SCH (08:26)
--- NOTE | 2018-02-15 09:31 | NUR ---
DISCHARGE Pt 62 y/o male admitted for etoh withdrawal. Alert and oriented to name, place, and time. Perrla. Skin warm and dry to touch. Respirations even and unlabored. VS wnl. Denies any SI/ HI. No belongings in cassette noted. Home medications, prescriptions, discharge papers, and belongings in cabinet packed in pt bag. Pt discharged to [facility] via private transport. No distress noted.
== END 2018-02-15 09:31 | disposition other institution (70) | DRG 895 ==
LOC: SRC 17:08
PROVIDERS: ADMIT Family Medicine Addiction Medicine; ATTEND Family Medicine Addiction Medicine
PROC: HZ2ZZZZ Detoxification Services for Substance Abuse Treatment (ICD-10-PCS; principal; 2018-02-09)
PROC: HZ41ZZZ Group Counseling for Substance Abuse Treatment, Behavioral (ICD-10-PCS; 2018-02-13)
DX: F10.230 Alcohol dependence with withdrawal, uncomplicated (principal); F13.230 Sedative, hypnotic or anxiolytic dependence with withdrawal, uncomplicated; Y90.0 Blood alcohol level of less than 20 mg/100 ml; Z95.2 Presence of prosthetic heart valve; Z79.82 Long term (current) use of aspirin; Z79.899 Other long term (current) drug therapy; I10 Essential (primary) hypertension; F32.9 Major depressive disorder, single episode, unspecified; F41.9 Anxiety disorder, unspecified; R76.8 Other specified abnormal immunological findings in serum; G47.00 Insomnia, unspecified
CPT/HCPCS: 36415; 70030-TC; 80307; 80346; 83690; 83735; 85025; 86592; 86705; 86803; 87340; 87806; A4663; G0480; Q0163